=== PATIENT | male | born 1960 | race Caucasian/White ===

== ENCOUNTER 2020-08-27 16:52 | Emergency (ER) | payer OTHER ==
[~2020-08-27] VITALS: Ht 175.3 cm; Wt 81.6 kg
[~2020-08-27 16:52] MED LIST: NABUMETONE500 MG PO; PERCOCET 5/3251 TAB PO
== END 2020-08-27 21:22 | disposition home or self-care (01) ==
LOC: ER 16:52
DX: K52.89 Other specified noninfective gastroenteritis and colitis (principal); E86.0 Dehydration; E87.8 Other disorders of electrolyte and fluid balance, not elsewhere classified; B34.9 Viral infection, unspecified; Z03.818 Encounter for observation for suspected exposure to other biological agents ruled out

== ENCOUNTER 2023-07-28 11:04 | Emergency (ER) | payer OTHER ==
[~2023-07-28] VITALS: Ht 175.3 cm; Wt 79.4 kg
[2023-07-28 13:16] LABS: HEMATOCRIT 46.2 % (39.0-48.0); MEAN CELL VOLUME 95.7 fL (80.0-100.00); MEAN CORPUSCULAR HEMOGLOBIN 33.1 pg (27.00-32.0); MEAN CORPUSCULAR HGB CONC 34.6 g/dl (32.0-36.0); PLATELET COUNT 204 K/uL (150-450); RED BLOOD COUNT 4.83 M/uL (4.00-6.00); RED CELL DISTRIBUTION WIDTH 13.9 % (11.5-14.5)
[2023-07-28 13:45] LABS: CALCIUM 9.6 mg/dL (8.5-10.1); CREATININE SERUM 1.11 mg/dL (0.70-1.30); GFR 67.35; POTASSIUM 4.69 mEq/L (3.5-5.1)
== END 2023-07-28 15:03 | disposition home or self-care (01) ==
LOC: ER 11:04
PROVIDERS: General Practice
DX: R07.89 Other chest pain (principal)